=== PATIENT | female | born 1940 | race Caucasian/White ===

== ENCOUNTER 2016-07-23 09:30 | Inpatient (IN) | payer MEDICARE ==
--- NOTE | 2016-09-30 21:38 | HP ---
HISTORY AND PHYSICAL: DATE OF SURGERY/ADMISSION: 10/08/16 DATE OF OFFICE VISIT: 09/30/16 SURGEON: Elva Newman MD PROCEDURE: Right total hip arthroplasty. CHIEF COMPLAINT: Right hip pain. HISTORY OF PRESENT ILLNESS: Ms. Fontaine is a 76-year-old female with complaints of right hip pain. She has failed conservative management and has elected to proceed with the right total hip arthroplasty. The surgery is scheduled for 05/[address] Newman. PAST MEDICAL HISTORY: Acid reflux, hypertension, high cholesterol, aortic valve disease, and mitral valve disease. 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 CURRENT MEDICATIONS: 1. Gabapentin 100 mg twice a day. 2. Captopril 50 mg 3 times a day. 3. Lescol XL 80 mg once a day. 4. Aspirin 81 mg once a day. 5. Maalox as needed. 6. Omeprazole 20 mg once a day. 7. Symbicort 80/4.5 mcg/ACT 2 puffs twice a day as needed. 8. Furosemide 20 mg. 9. Ventolin HFA. 10. Dicyclomine 10 mg 3 times a day. 11. Tramadol 50 mg every 6 hours. 12. Amlodipine 5 mg once a day. 13. Extra Strength Tylenol as needed. ALLERGIES: To SULFA, BETADINE, ERYTHROMYCIN, REQUIP, PREMARIN, and ROZEREM. FAMILY HISTORY: Heart disease. SOCIAL HISTORY: She is a 76-year-old female. She lives with her . She does not smoke, use drugs, or alcohol. REVIEW OF SYSTEMS: A complete 14-point review of systems was reviewed with the patient and was positive for occasional palpitations. PHYSICAL EXAMINATION GENERAL: She is well developed, well nourished. She is in no acute distress. VITAL SIGNS: She stands 5 feet 9 inches tall and weighs 125 pounds. Her blood pressure 125/65, her heart rate is 72. HEENT: Normocephalic, atraumatic. NECK: Supple. No palpable lymph nodes. Trachea is midline. PULMONARY: Lungs are clear to auscultation bilaterally. CARDIO: Regular rate and rhythm. Strong S1, S2. ABDOMEN: Soft, nontender, nondistended. NEUROLOGICAL: She is alert and oriented x3. Cranial nerves II through XII are intact. MUSCULOSKELETAL: Right lower extremity: The skin is intact. She has limited internal and external rotation of the right hip. She walks with the antalgic- type gait favoring her right leg. Her lower extremity muscle group strengths are intact at 5/5. She has 2+ dorsalis pedis pulses and intact sensation. ASSESSMENT AND PLAN: Ms. Fontaine is a 76-year-old female with complaints of right hip pain secondary to advanced osteoarthritis. She has failed conservative management and has elected to proceed with a right total hip arthroplasty, which is scheduled for 10/08/[address] Newman discussed the risks and benefits of the surgery at today's visit and all of her questions were answered. Percocet, Colace, and Coumadin were sent to her pharmacy for postoperative pain control and DVT prophylaxis. She will see Dr. Newman back in 10 to 14 days after the surgery. KEELEY MIRANDA [id number]/[facility] #: [id number] MTDD
[2016-10-08] MEDS ORDERED: Buffered Lidocaine 1% SYRIN* 3 ML/SYR SYRINGE INTRADERM ONE (06:00)
[2016-10-08] MEDS ORDERED: ceFAZolin 2 GM PREMIX(*) 2 GM/50 ML BAG IVPB ONE (08:06)
[2016-10-08] MEDS ORDERED: Propofol* 10 MG/ML 20 ML BTL IV PUSH ONE (09:47)
[2016-10-08] MEDS ORDERED: Lidocaine 2% PF* 5 ML VIAL ONE (09:47)
[2016-10-08] MEDS ORDERED: Rocuronium* 10 MG/ML VIAL ONE (09:47)
[2016-10-08] MEDS ORDERED: Bupivacaine 0.5% SDV PF* 30 ML VIAL ONE (09:48)
[2016-10-08] MEDS ORDERED: fentaNYL* 50 MCG/ML 2 ML VIAL (100 MCG VIAL) ONE (10:49)
[2016-10-08] MEDS ORDERED: Phenylephrine IV* 40 MCG/ML 10 ML SYRINGE ONE (12:25)
--- NOTE | 2016-10-08 12:25 | RAD ---
Indication: RIGHT total hip replacement. Comparison: September 30, 2016 Technique: LEFT lateral decubitus crosstable AP view of the RIGHT hip and pelvis. Report: Acetabular component and test fit/reamer femur component in place. No periprosthetic fracture evident. Lateral subcutaneous emphysema. IMPRESSION: Intraoperative control film.
[2016-10-08] MEDS ORDERED: Dexamethasone IV* 4 MG/ML 1 ML (4 MG) ONE (12:26)
[2016-10-08] MEDS ORDERED: Glycopyrrolate IV* 0.2 MG/ML 1 ML VIAL ONE (12:46)
[2016-10-08] MEDS ORDERED: Neostigmine Methylsulfate* 2 MG/2 ML SYRINGE ONE (12:46)
[2016-10-08] MEDS ORDERED: Ondansetron INJ* 2 MG/ML VIAL IV PRN ×2 (12:48→13:07)
[2016-10-08] MEDS ORDERED: LACTULOSE* 30 ML UDC PO PRN (13:07)
[2016-10-08] MEDS ORDERED: Acetaminophen TAB* 325 MG PO PRN (13:07)
[2016-10-08] MEDS ORDERED: diPHENhydraMINE IV* 50 MG/ML 1 ml VIAL (BENADRYL) IV PRN (13:07)
[2016-10-08] MEDS ORDERED: Morphine INJ* 4 MG/ML 1 ML SYRINGE IV PRN (13:07)
[2016-10-08] MEDS ORDERED: Ondansetron TAB* 4 MG PO PRN (13:07)
[2016-10-08] MEDS ORDERED: Bisacodyl SUPP* 10 MG SUPP PR PRN (13:07)
[2016-10-08] MEDS ORDERED: diPHENhydraMINE PO* 25 MG PO PRN (13:07)
[2016-10-08] MEDS ORDERED: fentaNYL* 50 MCG/ML 5 ML VIAL (250 MCG VIAL) ONE (13:13)
[2016-10-08] MEDS: fentaNYL* 50 MCG/ML 2 ML VIAL (100 MCG VIAL) IV PRN ×5 (13:15→13:37)
[2016-10-08] MEDS ORDERED: Polyethylene Glycol 3350* 17 GM PACKET PO PRN (13:19)
[2016-10-08] MEDS ORDERED: Albuterol HFA INHALER* 8 gm MDI INH PRN (13:21)
[2016-10-08] MEDS ORDERED: HYDROmorphone* 1 MG/ML 1 ML SYR ONE (13:31)
[2016-10-08] MEDS ORDERED: Ketorolac INJ* 30 MG/ML 1 ML VIAL ONE (13:31)
[2016-10-08] MEDS ORDERED: CAPTOPRIL 50 MG PO SCH (14:00)
--- NOTE | 2016-10-08 14:13 | RAD ---
Indication: Post RIGHT total hip arthroplasty. Comparison: September 30, 2016 Technique: Low AP pelvis, AP RIGHT hip, and crosstable lateral RIGHT hip views. Report: Noncemented RIGHT total hip prosthesis in place with normal alignment. No periprosthetic fracture evident. Overlying soft tissue edema and subcutaneous emphysema. IMPRESSION: Unremarkable immediate postoperative appearance following RIGHT total hip arthroplasty.
[2016-10-08] MEDS: Gabapentin CAP(*) 100 MG PO SCH ×2 (15:07→20:24)
[2016-10-08] MEDS: Dicyclomine CAP* 10 MG PO SCH ×2 (15:12→20:23)
[2016-10-08] MEDS ORDERED: oxyCODONE/Acetamin 5/325 MG* TAB ONE (15:55)
[2016-10-08] MEDS: oxyCODONE/Acetamin 5/325 MG* TAB PO PRN (15:57)
[2016-10-08] MEDS ORDERED: Captopril TAB* 25 MG PO SCH (16:11)
[2016-10-08] MEDS ORDERED: Warfarin TAB(*) 6 MG PO ONE (17:00)
[2016-10-08] MEDS: Atorvastatin* 10 MG TAB PO SCH (17:31)
[2016-10-08] MEDS: ceFAZolin 1 GM in Dextrose (*) 1 GM/50 ML BAG IVPB SCH (20:21)
[2016-10-08] MEDS: oxyCODONE TAB* 5 MG TAB PO PRN (20:21)
[2016-10-08] MEDS: Omeprazole CAP* 20 MG PO SCH (20:23)
[2016-10-08] MEDS: Magnesium Hydroxide LIQ* 30 ML UDC PO SCH (20:24)
[2016-10-08] MEDS: Docusate CAP* 100 MG PO SCH (20:24)
[2016-10-08] MEDS: Mometasone/Formoter 200/5 MDI INH SCH (20:25)
--- NOTE | 2016-10-08 22:30 | CONS ---
[facility] MEDICINE CONSULTATION REPORT: DATE OF CONSULT: 10/08/16 ATTENDING PHYSICIAN: Dr. Elva Newman. CONSULTING PHYSICIAN: Dr. Srikanth Oseguera (dictation provided by Miranda Smith NP). REASON FOR CONSULT: Medical co-management, admitted for right total hip arthroplasty. HISTORY OF PRESENT ILLNESS: Ms. Fontaine is a 76-year-old female with a past medical history of GERD, hypertension, high cholesterol, and aortic and mitral valve regurgitation who presents today to the hospital with a plan for a right total knee arthroplasty. Please see the dictated H and P from Dr. Newman for complete details. In brief, the patient had ongoing right hip pain and failed conservative measures and opted for surgical intervention. Ms. Fontaine states she has been feeling well prior to surgery. She has no complaints. In the immediate 24 hours prior to surgery, she did have a bit of diarrhea which she attributes to being quite nervous about the procedure. She was seen preoperatively by Dr. Gusman. Dr. Gusman notes that the patient was doing well. She had no angina. No evidence of CHF. He felt that no cardiac testing was indicated prior to surgery and that she could proceed as planned. She denies any other complaints. PAST MEDICAL HISTORY: 1. GERD. 2. Hypertension. 3. Hyperlipidemia. 4. Aortic valve regurgitation. 5. Mitral valve regurgitation. 6. Sciatica. 7. Low back pain. 8. Lumbar radiculopathy. 9. Asthma. MEDICATIONS: 1. Gabapentin 100 mg b.i.d. 2. Captopril 50 mg t.i.d. 3. Lescol XL 80 mg once a day. 4. Aspirin 81 mg daily. 5. Maalox p.r.n. 6. Omeprazole 20 mg daily. 7. Symbicort 80/4.5 mcg 2 puffs twice a day. 8. Furosemide 20 mg p.o. daily. 9. Ventolin inhaler as needed. 10. Dicyclomine 10 mg 3 times a day. 11. Tramadol 50 mg q.6 hours as needed. 12. Amlodipine 5 mg daily. 13. Extra Strength Tylenol as needed. FAMILY HISTORY: Positive for heart disease. SOCIAL HISTORY: No report of alcohol, tobacco, or drug use. The patient lives with her , Germán, who is the healthcare proxy REVIEW OF SYSTEMS: A 14-point review of systems was completed with Ms. Fontaine and all those mentioned above were negative. PHYSICAL EXAM: Vital Signs: Temperature 98.0, pulse rate 69, respiratory rate 16, O2 saturation 100% on room air, blood pressure 131/64. General: Ms. Fontaine is sitting in the bed. She is in no acute distress. She is calm and cooperative with my examination. Neuro: She is alert and oriented x3. She moves all extremities equally. There is no facial asymmetry or focal weakness. Extraocular movements are intact. Heart: S1, S2. No murmur, rub, or gallop and regular. Lungs are clear to auscultation bilaterally with no accessory muscle use and good aeration. The abdomen is soft, nontender with bowel sounds positive x4. Extremities: No cyanosis or edema. Skin is intact. DIAGNOSTIC STUDIES/LAB DATA: On 09/30/16, WBC 8.7, hemoglobin 13.5, hematocrit 41, platelet count 344. Sodium 132, potassium 4.1, chloride 98, serum bicarbonate 27, BUN 11, creatinine 0.64, glucose 85. ASSESSMENT: Ms. Fontaine is a 76-year-old female with a past medical history of hypertension, high cholesterol, and mitral and aortic insufficiency who presents today to the hospital for planned right total hip arthroplasty. Our recommendations are as follows: 1. Right total hip replacement: Management will be per Orthopedics. The patient will have pain medications p.r.n. and bowel regimen. She will have physical and occupational therapy and we will monitor H and H. 2. Hypertension: Plan to hold captopril in the immediate postoperative period , but she will continue on her Lasix. 3. Asthma: Pt reports using her rescue inhaler only when needing to walk long distances or up a sharp incline. Plan to monitor and continue prn. Encourage deep breathing and incentive spirometry. 3. DVT prophylaxis with Lovenox and warfarin per Ortho. 4. Code status is full code. TIME SPENT: Approximately 60 minutes were spent on the consultation of this patient, more than half time spent with the patient at the bedside reviewing the events leading up to this hospitalization, performing the physical examination, and reviewing the plan [place] [id number]/[facility] #: [id number] [facility]
[2016-10-09] MEDS: oxyCODONE/Acetamin 5/325 MG* TAB PO PRN ×4 (00:10→15:36)
[2016-10-09] MEDS: ceFAZolin 1 GM in Dextrose (*) 1 GM/50 ML BAG IVPB SCH ×2 (03:53→11:46)
[2016-10-09] MEDS: oxyCODONE TAB* 5 MG TAB PO PRN ×2 (03:54→19:34)
[2016-10-09 06:57] LABS: Hematocrit 30 % (35-47); Hemoglobin 10.1 g/dl (12.0-16.0)
[2016-10-09 07:16] LABS: BUN/Creatinine Ratio 15.1 (8-20); Calcium 8.4 mg/dL (8.6-10.3); EGFR African American 144.2 (>60); EGFR Non-African American 112.2 (>60); Potassium 4.2 mmol/L (3.5-5.0)
[2016-10-09] MEDS: Dicyclomine CAP* 10 MG PO SCH ×3 (08:47→19:33)
[2016-10-09] MEDS: Mometasone/Formoter 200/5 MDI INH SCH ×2 (08:48→08:51)
[2016-10-09] MEDS: Magnesium Hydroxide LIQ* 30 ML UDC PO SCH ×2 (08:48→19:35)
[2016-10-09] MEDS: amLODIPine TAB* 5 MG PO SCH (08:48)
[2016-10-09] MEDS: Docusate CAP* 100 MG PO SCH ×2 (08:48→19:34)
[2016-10-09] MEDS: Gabapentin CAP(*) 100 MG PO SCH ×3 (08:48→19:35)
[2016-10-09] MEDS ORDERED: Furosemide TAB* 20 MG PO SCH (09:00)
[2016-10-09] MEDS: PTO:Budesonide/Formote 80/4.5(NF) MDI INH SCH ×2 (09:53→19:45)
--- NOTE | 2016-10-09 10:22 | PN ---
Progress Note - Progress Note SOAP: Subjective: []Patient seen OOB in chair. Daughters and present. She is doing well , pain well managed. Nursing holding Lasix and BP meds due to recent hypotension. Feels mild dizziness, no SOB or CP. Objective: [] Vital Signs Temp 97.7 F 10/09/16 07:12 Pulse 59 10/09/16 07:12 Resp 18 10/09/16 09:42 BP 104/55 10/09/16 07:12 Pulse Ox 100 10/09/16 08:00 Intake & Output 10/08/16 10/09/16 10/09/16 18:59 06:59 18:59 Intake Total 2595 1125 Output Total 2400 525 Balance 195 600 Weight 123 lb 3.2 oz Intake: IV Fluids 980 627 LR 980 627 IVPB 55 58 Kefzol 55 58 Oral 1560 440 Output: Ross 2400 525 Laboratory Results - last 24 hr 10/09/16 10/09/16 10/09/16 06:38 06:38 06:38 Hgb 10.1 L Hct 30 L INR (Anticoag Therapy) 1.10 Sodium 131 L Potassium 4.2 Chloride 101 Carbon Dioxide 27 Anion Gap 3 BUN 8 Creatinine 0.53 Est GFR ( Amer) 144.2 Est GFR (Non-Af Amer) 112.2 BUN/Creatinine Ratio 15.1 Glucose 94 Calcium 8.4 L Right hip dressing is dry and intact calf mildly tender, Garo's negative, no edema +DF/PF right ankle neurovascularly intact distally Assessment: []s/p Right total hip arthroplasty POD #1 Plan: []PT/OT WBAT RLE Coumadin with Lovenox bridge: 6 mg today Medicine following
--- NOTE | 2016-10-09 12:48 | PN ---
Subjective Date of Service: 10/09/16 Interval History: Patient seen and examined at bedside. Pt states that her pain is controlled. Denies fever, chills, lightheadedness or dizziness, shortness of breath, chest discomfort, N/V/D, numbness or tingling. Family History: Unchanged from Admission Social History: Unchanged from Admission Past Medical History: Unchanged from Admission Objective Active Medications: Acetaminophen (Tylenol Tab*) 650 mg PO Q4H PRN Reason: mild pain or fever Albuterol (Ventolin Hfa Inhaler*) 2 puff INH Q4H PRN Reason: SOB/WHEEZING Amlodipine Besylate (Norvasc Tab*) 5 mg PO QAM FLOYD Atorvastatin Calcium (Lipitor*) 10 mg PO QPM FLOYD Bisacodyl (Dulcolax Supp*) 10 mg SD DAILY PRN Reason: constipation Budesonide/Formoterol Fumarate (Symbicort 80/4.5 (Nf)) 2 aer INH BID FLOYD Dicyclomine HCl (Bentyl Cap*) 10 mg PO TID FLOYD Diphenhydramine HCl (Benadryl Iv*) 12.5 mg IV Q6H PRN Reason: PRURITIS Diphenhydramine HCl (Benadryl Po*) 25 mg PO Q6H PRN Reason: INSOMNIA Docusate Sodium (Colace Cap*) 100 mg PO BID FLOYD Enoxaparin Sodium (Lovenox(*)) 30 mg SUBCUT Q24H FLOYD Furosemide (Lasix Tab*) 10 mg PO EVERY OTHER DAY FLOYD Furosemide (Lasix Tab*) 20 mg PO DAILY FLOYD Gabapentin (Neurontin Cap(*)) 100 mg PO TID FLOYD Lactated Ringer's (Lactated Ringers 1000 Ml Bag*) 1,000 mls @ 100 mls/hr IV PER RATE FLOYD Lactulose (Lactulose*) 30 ml PO Q6H PRN Reason: constipation Magnesium Hydroxide (Milk Of Magnesia Liq*) 30 ml PO BID FLOYD Morphine Sulfate (Morphine Inj (Syringe)*) 4 mg IV Q2H PRN Reason: PAIN Omeprazole (Prilosec Cap*) 20 mg PO BEDTIME FLOYD Ondansetron HCl (Zofran Inj*) 4 mg IV Q6H PRN Reason: nausea Ondansetron HCl (Zofran Tab*) 4 mg PO Q6H PRN Reason: NAUSEA Oxycodone HCl (Roxycodone Tab*) 10 mg PO Q4H PRN Reason: breakthrough pain Oxycodone/Acetaminophen (Percocet 5/325 Tab*) 1 - 2 tab PO Q3H PRN Reason: PAIN - MODERATE Pharmacy Profile Note (Coumadin Daily Reminder*) 1 note FOLLOW UP 1700 FLOYD Polyethylene Glycol/Electrolytes (Miralax*) 17 gm PO DAILY PRN Reason: Constipation Warfarin Sodium (Coumadin Tab(*)) 6 mg PO ONCE@1700 ONE Stop: 10/09/16 17:01 Vital Signs 10/08/16 10/08/16 10/08/16 13:05 13:10 13:15 Temperature 97.0 F Pulse Rate 86 86 81 Respiratory 14 19 18 Rate Blood Pressure 150/85 142/95 137/99 (mmHg) O2 Sat by Pulse 100 100 100 Oximetry 10/08/16 10/08/16 10/08/16 13:18 13:20 13:30 Temperature Pulse Rate 79 75 Respiratory 14 17 18 Rate Blood Pressure 150/98 160/86 (mmHg) O2 Sat by Pulse 100 100 Oximetry 10/08/16 10/08/16 10/08/16 13:35 13:37 13:45 Temperature Pulse Rate 75 Respiratory 16 16 14 Rate Blood Pressure 142/83 (mmHg) O2 Sat by Pulse 100 Oximetry 10/08/16 10/08/16 10/08/16 14:00 14:30 14:53 Temperature 97.7 F Pulse Rate 75 70 71 Respiratory 12 18 17 Rate Blood Pressure 147/71 133/68 126/60 (mmHg) O2 Sat by Pulse 100 100 100 Oximetry 10/08/16 10/08/16 10/08/16 15:02 15:57 16:12 Temperature 99.0 F Pulse Rate 71 Respiratory 17 18 18 Rate Blood Pressure 126/60 (mmHg) O2 Sat by Pulse 100 Oximetry 10/08/16 10/08/16 10/08/16 16:13 16:22 17:06 Temperature 98.0 F Pulse Rate 69 Respiratory 16 Rate Blood Pressure 131/64 (mmHg) O2 Sat by Pulse 100 99 99 Oximetry 10/08/16 10/08/16 10/08/16 17:14 17:18 17:28 Temperature 97.8 F Pulse Rate 75 Respiratory 14 18 18 Rate Blood Pressure 127/63 (mmHg) O2 Sat by Pulse 100 Oximetry 10/08/16 10/08/16 10/08/16 19:16 20:21 20:23 Temperature 98.2 F Pulse Rate 76 Respiratory 16 16 16 Rate Blood Pressure 120/63 (mmHg) O2 Sat by Pulse 100 Oximetry 10/08/16 10/08/16 10/08/16 20:24 20:34 21:13 Temperature 98.3 F Pulse Rate 68 Respiratory 16 16 16 Rate Blood Pressure 112/55 (mmHg) O2 Sat by Pulse 98 Oximetry 10/09/16 10/09/16 10/09/16 00:03 00:10 02:10 Temperature 97.7 F Pulse Rate 59 Respiratory 16 16 16 Rate Blood Pressure 114/59 (mmHg) O2 Sat by Pulse 100 Oximetry 10/09/16 10/09/16 10/09/16 03:54 04:40 05:54 Temperature 97.6 F Pulse Rate 57 Respiratory 16 16 16 Rate Blood Pressure 125/62 (mmHg) O2 Sat by Pulse 100 Oximetry 10/09/16 10/09/16 10/09/16 07:12 07:42 08:00 Temperature 97.7 F Pulse Rate 59 Respiratory 16 18 18 Rate Blood Pressure 104/55 (mmHg) O2 Sat by Pulse 100 100 Oximetry 10/09/16 10/09/16 10/09/16 10:18 11:41 11:45 Temperature 97.3 F Pulse Rate 67 Respiratory 18 16 18 Rate Blood Pressure 102/52 (mmHg) O2 Sat by Pulse 91 Oximetry 10/09/16 11:54 Temperature Pulse Rate Respiratory Rate Blood Pressure (mmHg) O2 Sat by Pulse 98 Oximetry Oxygen Devices in Use Now: None Appearance: NAD, sitting up in bed Eyes: No Scleral Icterus, PERRLA Ears/Nose/Mouth/Throat: NL Teeth, Lips, Gums, Mucous Membranes Moist Neck: NL Appearance and Movements; NL JVP, Trachea Midline Respiratory: Symmetrical Chest Expansion and Respiratory Effort, Clear to Auscultation Cardiovascular: NL Sounds; No Murmurs; No JVD, RRR Abdominal: NL Sounds; No Tenderness; No Distention Extremities: No Edema Skin: No Rash or Ulcers, - - Dressing to right hip clean, dry and intact Neurological: Alert and Oriented x 3, NL Muscle Strength and Tone Lines/Tubes/Other Access: Clean, Dry and Intact Peripheral IV - site benign Nutrition: Taking PO's Result Diagrams: 10/09/16 06:38 10/09/16 06:38 Assess/Plan/Problems-Billing Assessment: Ms. Fontaine is a 76 yo female with PMH significant for HTN, HLD, and mitral and aortic insufficiency who presented to the [facility] for an elective right total hip arthroplasty. - Patient Problems (1) Status post total hip replacement, right Code(s): Z96.641 - PRESENCE OF RIGHT ARTIFICIAL HIP JOINT SNOMED Code(s): 506145657391 Comment: - POD #1 - Management per Ortho - Continue PT/OT - Trend HH (2) HTN (hypertension) Code(s): I10 - ESSENTIAL (PRIMARY) HYPERTENSION SNOMED Code(s): 22205459 Comment: - Controlled - Continue Amlodipine and Lasix - Continue to hold captopril for now (3) Asthma Code(s): J45.909 - UNSPECIFIED ASTHMA, UNCOMPLICATED SNOMED Code(s): 048820726 Comment: - Albuterol PRN - Encouraged deep breathing and IS (4) DVT prophylaxis Code(s): CGB0817 - SNOMED Code(s): 140129158 Comment: - Continue Lovenox to Warfarin bridge per Ortho (5) Full code status Code(s): Z78.9 - OTHER SPECIFIED HEALTH STATUS SNOMED Code(s): 904049601 Status and Disposition: Inpatient. Disposition per Orthopedics
[2016-10-09] MEDS ORDERED: Enoxaparin(*) 30 MG/0.3 ML SYR SUBCUT SCH (14:00)
[2016-10-09] MEDS ORDERED: Warfarin TAB(*) 6 MG PO ONE (17:00)
[2016-10-09] MEDS: Atorvastatin* 10 MG TAB PO SCH (17:43)
[2016-10-09] MEDS: Omeprazole CAP* 20 MG PO SCH (19:34)
--- NOTE | 2016-10-09 22:05 | OP ---
DATE OF OPERATION: 10/08/16 - ROOM #347 DATE OF : 40 SURGEON: Elva Newman MD GENERAL FARM HAND: KEELEY Rossi ANESTHESIOLOGIST: Dr. Vallejo. ANESTHESIA: General. PRE-OP DIAGNOSIS: Severe end-stage degenerative osteoarthritis of the right hip joint. POST-OP DIAGNOSIS: Severe end-stage degenerative osteoarthritis of the right hip joint. OPERATIVE PROCEDURE: Right total hip arthroplasty. HARDWARE USED: This is uncemented Uvaldo total hip arthroplasty hardware. For the cup, a Tritanium Cluster Hole Shell 52D, two 20-mm bone screws were used. For the liner, a Trident X3 0-degree polyethylene insert 36D. For the femur, an Accolade TMZF size 3 127-degree neck with a Biolox delta ceramic V40 femoral head 36 -2.5. COMPLICATIONS: None. ESTIMATED BLOOD LOSS: 400 cc. SPECIMEN: Femoral head and acetabular reaming, sent to pathology. BRIEF HISTORY/INDICATIONS: Ms. Fontaine is a 76-year-old female with a year of increasingly severe right hip pain. She failed conservative treatment with anti - inflammatories, pain medications, intraarticular hip injection, and physical therapy. Due to continued pain and decreased quality of life, she elected to have right total hip arthroplasty. Informed consent was obtained from the patient. She understood the risks of the surgery included, but were not limited to bleeding, infection, damage to nearby structures, continued pain, need for further surgery, intraoperative fracture, nerve palsy, hardware failure, loosening, dislocation, leg length discrepancy, stroke, heart attack, blood clot, and . She wished to proceed. INTRAOPERATIVE FINDINGS: Intraoperatively, the patient was noted to have severe end-stage arthritis. She had complete loss of cartilage in the femoral head and acetabulum. There were significant osteophyte formation around the femoral head and neck junction. DESCRIPTION OF PROCEDURE: Ms. Fontaine was identified in the preanesthesia unit. Her right lower extremity was marked as the correct operative side. Informed consent was signed and placed in the chart. The patient was taken to the operating room and placed under general anesthesia without difficulty. A Ross catheter was placed. The patient was placed in the left lateral decubitus position on the PEG board with all bony prominences well padded. Right lower extremity was prepped and draped in the usual sterile fashion. Preop time-out was made to correctly identify the patient's side and site. Appropriate perioperative antibiotics were given within 1 hour of incision. A 12 cm posterior hip incision was made with a 10 blade and carried down to the lateral fascial layer. Lateral fascial layer was incised in line with the skin incision. Charnley retractor was placed. Posterior aspect of the hip joint was easily visualized. The piriformis and conjoint tendons were identified and elevated off the posterolateral femur using electrocautery. These were tagged with two #5 Ethibonds. Next, a standard posterolateral capsular flap was made with electrocautery and also tagged with two #5 Ethibonds. The hip was carefully dislocated. Lesser troch to the center of the femoral head measured 50 mm. Oscillating saw was used to make the appropriate femoral neck cut. The femoral head was sent to pathology. The femur was carefully retracted anteriorly. After appropriate placement of retractors, the acetabulum was easily visualized. Long handled knife was used to carefully remove any remaining labrum from the acetabular rim. The acetabulum was sequentially reamed up to a size 51. A 51 trial had good fit. A 52 Tritanium cluster hole shell was chosen as the final acetabular insert. This was impacted into the acetabulum without difficulty. There was good stability. There was appropriate anteversion and abduction angle. Two 20-mm screws were placed in the superior posterior quadrant for extra stability. A Trident X3 0-degree liner 36D was chosen and impacted into the acetabular cup. Stability of the liner was checked and rechecked and noted to be stable. Attention was turned next to preparation of the proximal femur. Box cut osteotome and canal finder were used to enter the proximal femur. Femur was sequentially broached up to a size 3, which had good fit and anteversion. A 127 -degree neck trial was chosen as well as a 36 +0 head trial. Hip was reduced and taken through range of motion. Soft tissue tension was slightly increased. The hip was stable in all positions. The hip was carefully dislocated. All trials were carefully removed. Final implant chosen was TMZF Accolade size 3 with a 127-degree neck. This was impacted into the femoral canal without difficulty. There was good stability and appropriate anteversion. A 36 +0 trial head was chosen. This measured 54 mm. Therefore, a 36 -2.5 ceramic Biolox delta head was chosen as the final implant. This was impacted onto the femoral neck without difficulty. The hip was reduced and taken through a range of motion. The hip was stable in all positions with good soft tissue tension. The hip was copiously irrigated with sterile saline. Previously tagged capsule and tendons were reapproximated to the posterolateral femur through two trochanteric drill holes. The hip was copiously irrigated with sterile saline. The lateral fascial layer was reapproximated using interrupted #1 Vicryl. The rest of the incision was closed in a layered fashion using 0 and 2-0 Vicryl. Skin was closed using running 3-0 Monocryl with Dermabond. Sterile Adaptic, 4x4s, and paper tape were used to cover the incision. The patient's anesthesia was reversed without difficulty. She was taken to the PACU in stable condition. Intended weightbearing will be weightbearing as tolerated with posterior hip precautions. Intended DVT prophylaxis will be Coumadin with a Lovenox bridge. [id number]/[facility] #: [id number] NORMA
[2016-10-10] MEDS: oxyCODONE TAB* 5 MG TAB PO PRN ×5 (00:02→16:34)
[2016-10-10 06:30] LABS: Hematocrit 30 % (35-47)
[2016-10-10] MEDS: Docusate CAP* 100 MG PO SCH ×2 (08:03→20:26)
[2016-10-10] MEDS: Magnesium Hydroxide LIQ* 30 ML UDC PO SCH ×2 (08:03→20:27)
[2016-10-10] MEDS: amLODIPine TAB* 5 MG PO SCH (08:03)
[2016-10-10] MEDS: PTO:Budesonide/Formote 80/4.5(NF) MDI INH SCH ×2 (08:12→19:30)
[2016-10-10] MEDS: Gabapentin CAP(*) 100 MG PO SCH ×3 (08:12→20:26)
[2016-10-10] MEDS: Dicyclomine CAP* 10 MG PO SCH ×3 (08:13→20:25)
[2016-10-10] MEDS ORDERED: Furosemide TAB* 20 MG PO SCH (09:00)
--- NOTE | 2016-10-10 11:41 | PN ---
Progress Note - Progress Note SOAP: Subjective: Pt. is alert, moderate pain. Objective: RLE - dressing changed, inc c/d/i. distally nvi. Vital Signs: Temp Pulse Resp BP Pulse Ox 98.2 F 82 18 98/53 93 10/10/16 07:44 10/10/16 07:44 10/10/16 10:27 10/10/16 07:44 10/10/16 07:44 Laboratory Results - last 24 hr 10/10/16 10/10/16 06:03 06:07 Hgb 10.0 L Hct 30 L INR (Anticoag Therapy) 2.31 H Assessment: 76 yo F pod 2 s/p RTHA Plan: wbat rle with post hip precautions pt/ot d/c lovenox, hold coumadin tonight plan d/c to home with vns tomorrow
--- NOTE | 2016-10-10 17:13 | PN ---
Subjective Date of Service: 10/10/16 Interval History: Patient seen and examined at bedside. Pt states that her pain is controlled. Denies fever, chills, shortness of breath, chest discomfort, N/V/D. Family History: Unchanged from Admission Social History: Unchanged from Admission Past Medical History: Unchanged from Admission Objective Active Medications: Acetaminophen (Tylenol Tab*) 650 mg PO Q4H PRN Reason: mild pain or fever Albuterol (Ventolin Hfa Inhaler*) 2 puff INH Q4H PRN Reason: SOB/WHEEZING Amlodipine Besylate (Norvasc Tab*) 5 mg PO QAM FLOYD Atorvastatin Calcium (Lipitor*) 10 mg PO QPM FLOYD Bisacodyl (Dulcolax Supp*) 10 mg MO DAILY PRN Reason: constipation Budesonide/Formoterol Fumarate (Symbicort 80/4.5 (Nf)) 2 aer INH BID FLOYD Dicyclomine HCl (Bentyl Cap*) 10 mg PO TID FLOYD Diphenhydramine HCl (Benadryl Iv*) 12.5 mg IV Q6H PRN Reason: PRURITIS Diphenhydramine HCl (Benadryl Po*) 25 mg PO Q6H PRN Reason: INSOMNIA Docusate Sodium (Colace Cap*) 100 mg PO BID FLOYD Furosemide (Lasix Tab*) 10 mg PO MoWeFr@0900 FLOYD Furosemide (Lasix Tab*) 20 mg PO Gottlieb@0900 FLOYD Gabapentin (Neurontin Cap(*)) 100 mg PO TID FLOYD Lactated Ringer's (Lactated Ringers 1000 Ml Bag*) 1,000 mls @ 100 mls/hr IV PER RATE FLOYD Lactulose (Lactulose*) 30 ml PO Q6H PRN Reason: constipation Magnesium Hydroxide (Milk Of Magnesia Liq*) 30 ml PO BID FLOYD Morphine Sulfate (Morphine Inj (Syringe)*) 4 mg IV Q2H PRN Reason: PAIN Omeprazole (Prilosec Cap*) 20 mg PO BEDTIME FLOYD Ondansetron HCl (Zofran Inj*) 4 mg IV Q6H PRN Reason: nausea Ondansetron HCl (Zofran Tab*) 4 mg PO Q6H PRN Reason: NAUSEA Oxycodone HCl (Roxycodone Tab*) 10 mg PO Q4H PRN Reason: breakthrough pain Oxycodone/Acetaminophen (Percocet 5/325 Tab*) 1 - 2 tab PO Q3H PRN Reason: PAIN - MODERATE Pharmacy Profile Note (Coumadin Daily Reminder*) 1 note FOLLOW UP 1700 FLOYD Polyethylene Glycol/Electrolytes (Miralax*) 17 gm PO DAILY PRN Reason: Constipation Vital Signs 10/09/16 10/09/16 10/09/16 19:35 19:38 21:33 Temperature 98.0 F Pulse Rate 75 Respiratory 14 16 16 Rate Blood Pressure 106/55 (mmHg) O2 Sat by Pulse 100 Oximetry 10/09/16 10/09/16 10/09/16 21:34 21:35 23:31 Temperature 98.0 F Pulse Rate 85 Respiratory 16 16 16 Rate Blood Pressure 115/56 (mmHg) O2 Sat by Pulse 98 Oximetry 10/10/16 10/10/16 10/10/16 00:02 02:02 04:10 Temperature 98.1 F Pulse Rate 77 Respiratory 16 16 16 Rate Blood Pressure 102/49 (mmHg) O2 Sat by Pulse 97 Oximetry 10/10/16 10/10/16 10/10/16 04:15 06:15 07:44 Temperature 98.2 F Pulse Rate 82 Respiratory 16 16 18 Rate Blood Pressure 98/53 (mmHg) O2 Sat by Pulse 93 Oximetry 10/10/16 10/10/16 10/10/16 08:00 08:12 08:13 Temperature Pulse Rate Respiratory 18 18 18 Rate Blood Pressure (mmHg) O2 Sat by Pulse 93 Oximetry 10/10/16 10/10/16 10/10/16 10:27 12:27 12:39 Temperature 98.4 F Pulse Rate 81 Respiratory 18 18 18 Rate Blood Pressure 110/55 (mmHg) O2 Sat by Pulse 100 Oximetry 10/10/16 10/10/16 10/10/16 16:00 16:02 16:34 Temperature 97.9 F Pulse Rate 89 Respiratory 16 18 Rate Blood Pressure 115/55 (mmHg) O2 Sat by Pulse 100 99 Oximetry Oxygen Devices in Use Now: None Appearance: NAD, sitting up in bed Eyes: No Scleral Icterus Ears/Nose/Mouth/Throat: Mucous Membranes Moist Respiratory: Symmetrical Chest Expansion and Respiratory Effort, Clear to Auscultation Cardiovascular: NL Sounds; No Murmurs; No JVD, RRR Abdominal: NL Sounds; No Tenderness; No Distention Skin: - - Dressing to right hip Neurological: Alert and Oriented x 3, NL Muscle Strength and Tone Lines/Tubes/Other Access: Clean, Dry and Intact Peripheral IV - site benign Nutrition: Taking PO's Result Diagrams: 10/10/16 06:03 10/09/16 06:38 Assess/Plan/Problems-Billing Assessment: Ms. Fontaine is a 76 yo female with PMH significant for HTN, HLD, and mitral and aortic insufficiency who presented to the the hospital for an elective right total hip arthroplasty. - Patient Problems (1) Status post total hip replacement, right Code(s): Z96.641 - PRESENCE OF RIGHT ARTIFICIAL HIP JOINT SNOMED Code(s): 193075191982 Comment: - POD #2 - Management per Ortho - Continue PT/OT - Trend HH (2) HTN (hypertension) Code(s): I10 - ESSENTIAL (PRIMARY) HYPERTENSION SNOMED Code(s): 80776159 Comment: - Controlled - Continue Amlodipine and Lasix - Continue to hold captopril for now (3) Asthma Code(s): J45.909 - UNSPECIFIED ASTHMA, UNCOMPLICATED SNOMED Code(s): 140059340 Comment: - Albuterol PRN - Encouraged deep breathing and IS (4) DVT prophylaxis Code(s): LZL8446 - SNOMED Code(s): 105799239 Comment: - Continue Lovenox to Warfarin bridge per Ortho (5) Full code status Code(s): Z78.9 - OTHER SPECIFIED HEALTH STATUS SNOMED Code(s): 416403956 Status and Disposition: Inpatient. Disposition per Orthopedics
[2016-10-10] MEDS: Atorvastatin* 10 MG TAB PO SCH (17:40)
[2016-10-10] MEDS: Omeprazole CAP* 20 MG PO SCH (20:27)
[2016-10-10] MEDS: oxyCODONE/Acetamin 5/325 MG* TAB PO PRN (23:31)
[2016-10-11] MEDS: oxyCODONE/Acetamin 5/325 MG* TAB PO PRN ×2 (04:28→11:23)
[2016-10-11] MEDS: oxyCODONE TAB* 5 MG TAB PO PRN (06:32)
[2016-10-11 08:28] LABS: Hematocrit 33 % (35-47); Hemoglobin 11.1 g/dl (12.0-16.0)
[2016-10-11 08:35] VITALS: BP 107/55
[2016-10-11] MEDS: Magnesium Hydroxide LIQ* 30 ML UDC PO SCH (08:39)
[2016-10-11] MEDS: Gabapentin CAP(*) 100 MG PO SCH (08:40)
[2016-10-11] MEDS: Docusate CAP* 100 MG PO SCH (08:41)
[2016-10-11] MEDS: Dicyclomine CAP* 10 MG PO SCH (08:41)
[2016-10-11] MEDS: PTO:Budesonide/Formote 80/4.5(NF) MDI INH SCH (08:42)
[2016-10-11] MEDS ORDERED: Furosemide TAB* 20 MG PO SCH (09:00)
[2016-10-11] MEDS: amLODIPine TAB* 5 MG PO SCH (09:50)
--- NOTE | 2016-10-11 11:07 | PN ---
Progress Note - Progress Note SOAP: Subjective: [76 y/o female s/p R MYAH 10/[address] Newman. Patient feeling well, working well with PT, no complaints, pain controlled. Eager for D/C, with daugther and . VSS ] Objective: [GEneral- well appearing, sitting comfortably, NAD MSK- + DF/PF, neg homans, PT 2+ b/l, sensation intact grossly LEs, incision c/d/ i, redressed, minimal tenderness to palpation, no erythema. Vital Signs Temp 97.5 F 10/11/16 08:25 Pulse 69 10/11/16 08:25 Resp 18 10/11/16 10:40 BP 107/55 10/11/16 08:25 Pulse Ox 100 10/11/16 08:25 Intake & Output 10/10/16 10/11/16 10/11/16 18:59 06:59 18:59 Intake Total 610 1400 200 Output Total 1800 1999 675 Balance -1190 -600 -475 Intake: Oral 610 1400 200 Output: Urine 1300 2000 675 Liquid Stool 500 Other: Estimated Void Medium # Voids 1 Assessment: [76 y/o female s/p R MYAH 10/[address] Newman.] Plan: - Follow up with Dr. Newman within 10 days for wound check - INR theraputic, hold coumadin tonight - Continue PT/ OT Active Medications Generic Name Dose Route Start Last Admin Trade Name Freq PRN Reason Stop Dose Admin Acetaminophen 650 mg 10/08/16 13:07 Tylenol Tab* PO Q4H PRN mild pain or fever Albuterol 2 puff 10/08/16 13:21 Ventolin Hfa Inhaler* INH Q4H PRN SOB/WHEEZING Amlodipine Besylate 5 mg 10/09/16 09:00 10/11/16 09:50 Norvasc Tab* PO Not Given QAM FLOYD Atorvastatin Calcium 10 mg 10/08/16 18:00 10/10/16 17:40 Lipitor* PO 10 mg QPM FLOYD Administration Bisacodyl 10 mg 10/08/16 13:07 Dulcolax Supp* NM DAILY PRN constipation Budesonide/Formoterol Fumarate 2 aer 10/09/16 10:00 10/11/16 08:42 Symbicort 80/4.5 (Nf) INH 2 puff BID FLOYD Administration Dicyclomine HCl 10 mg 10/08/16 14:00 10/11/16 08:41 Bentyl Cap* PO 10 mg TID FLOYD Administration Diphenhydramine HCl 12.5 mg 10/08/16 13:07 Benadryl Iv* IV Q6H PRN PRURITIS Diphenhydramine HCl 25 mg 10/08/16 13:07 Benadryl Po* PO Q6H PRN INSOMNIA Docusate Sodium 100 mg 10/08/16 21:00 10/11/16 08:41 Colace Cap* PO 100 mg BID FLOYD Administration Furosemide 10 mg 10/11/16 09:00 10/11/16 09:50 Lasix Tab* PO Not Given MoWeFr@0900 FLOYD Furosemide 20 mg 10/13/16 09:00 Lasix Tab* PO Gottlieb@0900 FLOYD Gabapentin 100 mg 10/08/16 14:00 10/11/16 08:40 Neurontin Cap(*) PO 100 mg TID FLOYD Administration Lactated Ringer's 1,000 mls @ 100 mls/hr 10/08/16 14:00 10/09/16 01:10 Lactated Ringers 1000 Ml Bag* IV 100 mls/hr PER RATE FLOYD Administration Lactulose 30 ml 10/08/16 13:07 Lactulose* PO Q6H PRN constipation Magnesium Hydroxide 30 ml 10/08/16 21:00 10/11/16 08:39 Milk Of Magnesia Liq* PO Not Given BID FLOYD Morphine Sulfate 4 mg 10/08/16 13:07 10/09/16 13:45 Morphine Inj (Syringe)* IV 4 mg Q2H PRN Administration PAIN Omeprazole 20 mg 10/08/16 21:00 10/10/16 20:27 Prilosec Cap* PO 20 mg BEDTIME FLOYD Administration Ondansetron HCl 4 mg 10/08/16 13:07 10/09/16 13:45 Zofran Inj* IV 4 mg Q6H PRN Administration nausea Ondansetron HCl 4 mg 10/08/16 13:07 Zofran Tab* PO Q6H PRN NAUSEA Oxycodone HCl 10 mg 10/08/16 13:07 10/11/16 06:32 Roxycodone Tab* PO 10 mg Q4H PRN Administration breakthrough pain Oxycodone/Acetaminophen 1 - 2 tab 10/08/16 13:07 10/11/16 04:28 Percocet 5/325 Tab* PO 2 tab Q3H PRN Administration PAIN - MODERATE Pharmacy Profile Note 1 note 10/08/16 17:00 10/10/16 16:08 Coumadin Daily Reminder* FOLLOW UP 1 note 1700 FLOYD Administration Polyethylene Glycol/Electrolytes 17 gm 10/08/16 13:19 Miralax* PO DAILY PRN Constipation ]
[2016-10-13] MEDS ORDERED: Furosemide TAB* 20 MG PO SCH (09:00)
== END 2016-10-11 12:20 | disposition home health service (06) | DRG 470 ==
LOC: AA 10-08 07:41 → SSU 10-08 15:15
PROVIDERS: ADMIT Orthopaedic Surgery Adult Reconstructive Orthopaedic Surgery; ATTEND Orthopaedic Surgery Adult Reconstructive Orthopaedic Surgery
PROC: 0SR904A Replacement of Right Hip Joint with Ceramic on Polyethylene Synthetic Substitute, Uncemented, Open Approach (ICD-10-PCS; principal; 2016-10-08 10:15)
DX: M16.11 Unilateral primary osteoarthritis, right hip (principal); I10 Essential (primary) hypertension; K21.9 Gastro-esophageal reflux disease without esophagitis; E78.00 Pure hypercholesterolemia, unspecified; I08.0 Rheumatic disorders of both mitral and aortic valves; Z88.2 Allergy status to sulfonamides; Z88.1 Allergy status to other antibiotic agents; Z88.8 Allergy status to other drugs, medicaments and biological substances; Z82.49 Family history of ischemic heart disease and other diseases of the circulatory system; R42 Dizziness and giddiness; J45.909 Unspecified asthma, uncomplicated; M54.30 Sciatica, unspecified side; M25.751 Osteophyte, right hip
CPT/HCPCS: 36415; 72170; 80048; 85014; 85018; 85610; 88304; 88311; 94760; A9270-GY; C1713; C1776; J0690; J1100; J1170; J1650; J1885; J2270; J2405; J2704; J3010

== ENCOUNTER 2017-01-01 18:10 | Emergency (ER) | payer MEDICARE ==
[2017-01-01] MEDS ORDERED: NS 0.9% 1000 ML* 1,000 ML IV ONE (20:05)
[2017-01-01] MEDS ORDERED: methylPREDNISolone 125 MG* 2 ML VIAL IV ONE (20:05)
[2017-01-01] MEDS ORDERED: Ketorolac INJ* 30 MG/ML 1 ML VIAL IV ONE (20:05)
[2017-01-01] MEDS ORDERED: diPHENhydraMINE IV* 50 MG/ML 1 ml VIAL (BENADRYL) IV ONE (20:05)
[2017-01-01] MEDS ORDERED: Metoclopramide IV* 5 MG/ML 2 ML VIAL IV ONE (20:05)
[2017-01-01 22:13] VITALS: BP 136/77
--- NOTE | 2017-01-03 15:07 | ED ---
Jodie Villatoro SooYoung, scribed for Jaxon Ramirez MD on 01/01/17 at 1956 . Headache - HPI Summary HPI Summary: A 76 y/o F presents to ED referred by Dr. Motley with constant R-sided KIRBY onset two days ago, radiating down to jaw. Pain described as throbbing. Associated sx : teeth pain, neck pain. Denies visual changes, weakness, numbness, photophobia. Aggravating factors: certain odors. Takes Tramadol with Tylenol, Percocet for pain. Pt's is currently recovering from a stroke. PMHx: migraines. She states having the flu a few weeks ago. SHx: hip replacement. Dr. Motley suspects temporal arteritis. - History Of Current Complaint Chief Complaint: EDGeneral Stated Complaint: HIGH BLOOD COUNT- IV TREATMENT Time Seen by Provider: 01/01/17 19:45 Hx Obtained From: Patient, Family/Time Clock Mechanic - friend present Onset/Duration: Started days ago - two days ago, Still Present Timing: Constant Radiates to: jaw Associated Signs And Symptoms: Neck Pain, Other (Noted In Comments) - pos: dental pain - Allergies/Home Medications Allergies/Adverse Reactions: Allergies Allergy/AdvReac Type Severity Reaction Status Date / Time Conjugated Estrogens Allergy Intermediate Rash Verified 12/16/16 09:12 [From Premarin] Erythromycin Allergy Intermediate Hives Verified 12/16/16 09:12 Povidone Iodine Allergy Intermediate Hives Verified 12/16/16 09:12 [From Betadine] Ramelteon [From Rozerem] Allergy Mild Itching Verified 12/16/16 09:12 Ropinirole [From Requip] Allergy Mild Rash Verified 12/16/16 09:12 Sulfa Drugs Allergy Mild Hives Verified 12/16/16 09:12 PMH/Surg Hx/FS Hx/Imm Hx Previously Healthy: No Endocrine/Hematology History: Denies: Hx Diabetes Cardiovascular History: Reports: Hx Coronary Artery Disease - RIGHT CAROTID ARTERY WITH 30 % BLOCKAGE, Hx Hypercholesterolemia, Hx Hypertension, Hx Rheumatic Fever - A TEENAGER, Hx Valvular Heart Disease - LEAKING VALVES X 2 , Other Cardiovascular Problems/Disorders - Tachycardia; Aortic Valve Disorder; Mitral Valve Disorder Denies: Hx Angina, Hx Pacemaker/ICD Respiratory History: Reports: Hx Asthma - INHALERS, Other Respiratory Problems/ Disorders - SOB GOING UP STAIRS AND HILLS GI History: Reports: Hx Gastroesophageal Reflux Disease - CONTROL WITH MEDS, Hx Hiatal Hernia - CORRECTED BY DIMAS DELVALLE X 2004, Hx Irritable Bowel - CONSTIPATION, Hx Ulcer - CAUSED BY POSS USE OF NSAIDS History: Reports: Other Problems/Disorders - HX OF LARGE CYSTOCELE CORRECTED WITH A SLING SEES DR CORDERO Denies: Hx Renal Disease Musculoskeletal History: Reports: Hx Arthritis - GENERALIZED, Hx Back Problems, Other Musculoskeletal History - LUMBAR SPINAL STENOSIS; THORACIC and LS NEURITIS Sensory History: Reports: Hx Cataracts - BILAT, Hx Contacts or Glasses Denies: Hx Hearing Aid Opthamlomology History: Reports: Hx Cataracts - BILAT, Hx Contacts or Glasses Neurological History: Reports: Hx Headaches, Hx Migraine - none recently, Hx Nerve Disease - r/t right hip pain, Other Neuro Impairments/Disorders - PAIN CLINIC INJECTIONS Psychiatric History: Denies: Hx Anxiety, Hx Attention Deficit Hyperactivity Disorder, Hx Eating Disorder, Hx Depression, Hx Panic Disorder, Hx Post Traumatic Stress Disorder, Hx Inpatient Treatment, Hx Community Mental Health Tx, Hx Schizophrenia, Hx Bipolar Disorder, Hx Suicide Attempt, Hx of Violent Episodes Against Others, Hx Substance Abuse, Other Psychiatric Issues/Disorders - Cancer History Hx Chemotherapy: No Hx Radiation Therapy: No - Surgical History Surgery Procedure, Year, and Place: 1973 HYSTERECTOMY- [facility]. BLADDER SLING 2012 - [facility] [place]. COLECTOMY WITH BOWEL RESECTION 1978-[facility]. T&A 1960- [facility]. LEFT CATARACT 2002/ [facility] - [facility] [place] RIGHT CATARACT 2014 [facility] [place] APPENDECTOMY 12 YRS OLD- [place], [place];. LUMBAR SPINE SURGERY 11/09/2013 BY [facility] LEFT FOOT BUNIONECTOMY, SHORTENING OF SECOND TOE OF LEFT FOOT, [facility] Hx Anesthesia Reactions: No Infectious Disease History: No Infectious Disease History: Reports: Hx Shingles - X 3 2013 LAST EPISODE Denies: Hx Clostridium Difficile, Hx Hepatitis, Hx Human Immunodeficiency Virus (HIV), Hx of Known/Suspected MRSA, Hx Tuberculosis, Hx Known/Suspected VRE , Hx Known/Suspected VRSA, History Other Infectious Disease, Traveled Outside the in Last 30 Days - Family History Known Family History: Positive: Other - Breast CA - sister - Social History Occupation: Unemployed - HOMEMAKER Lives: With Family Alcohol Use: None Hx Substance Use: No Substance Use Type: Reports: None Hx Tobacco Use: No Smoking Status (MU): Never Smoked Tobacco Have You Smoked in the Last Year: No Review of Systems Negative: Fever Positive: Other - neg: vision changes. Negative: Photophobia Positive: Dental Pain - and jaw pain Positive: Other - pos: neck pain Positive: Headache. Negative: Weakness, Numbness All Other Systems Reviewed And Are Negative: Yes Physical Exam Triage Information Reviewed: Yes Vital Signs On Initial Exam: Initial Vitals Temp Pulse Resp BP Pulse Ox 98.2 F 86 15 152/98 98 01/01/17 18:15 01/01/17 18:15 01/01/17 18:15 01/01/17 18:15 01/01/17 18:15 Vital Signs Reviewed: Yes Appearance: Positive: Well-Appearing, No Pain Distress Skin: Positive: Warm, Skin Color Reflects Adequate Perfusion, Dry Head/Face: Negative: Temporal Artery Tenderness Eyes: Positive: Normal ENT: Positive: Normal ENT inspection Neck: Positive: Supple, Nontender Respiratory/Lung Sounds: Positive: Clear to Auscultation, Breath Sounds Present Cardiovascular: Positive: RRR Abdomen Description: Positive: Nontender, Soft Musculoskeletal: Positive: Normal Neurological: Positive: Normal Psychiatric: Positive: Normal, Affect/Mood Appropriate - Stacy Coma Scale Coma Scale Total: 15 Diagnostics - Vital Signs Vital Signs Temp Pulse Resp BP Pulse Ox 01/01/17 18:15 98.2 F 86 15 152/98 98 - Laboratory Lab Statement: Any lab studies that have been ordered have been reviewed, and results considered in the medical decision making process. Re-Evaluation - Re-Evaluation 1 Re-Evaluation Time: 21:40 Change: Improved Comment: Pt states feeling aiden, KIRBY still present, but better. Headache Course/Dx - Course Course Of Treatment: Ms. Fontaine has some right sided KIRBY and her ESR was reported elevated in Dr. Motley's office. The concern was for temporal arteritis. She was given a first dose of steroids IV and these will be continued PO as an outpatient as she has no visual C/O at this time. She got a lot of relief from her KIRBY with a migraine cocktail. - Diagnoses Provider Diagnoses: Headache Discharge - Discharge Plan Condition: Stable Disposition: HOME Prescriptions: predniSONE TAB* [Deltasone TAB*] 60 mg PO DAILY #42 tab Patient Education Materials: Prednisone (By mouth), General Headache (ED) Referrals: Ag Motley MD [Primary Care Provider] - 3 Days (Follow up with Dr. Motley in the next 2-3 days.) Additional Instructions: Follow up with Dr. Motley in the next 2-3 days. Please return to the ED if you experience new or worsening symptoms. The documentation as recorded by the Jodie almonte SooYoung accurately reflects the service I personally performed and the decisions made by me, Jaxon Ramirez MD.
== END 2017-01-01 22:13 | disposition home or self-care (01) ==
LOC: ED 18:10
DX: R51 Headache (principal); M54.2 Cervicalgia; K08.89 Other specified disorders of teeth and supporting structures
CPT/HCPCS: 96374; 96375; 99282; J1200; J1885; J2930

== ENCOUNTER 2018-05-13 21:05 | Emergency (ER) | payer MEDICARE ==
--- NOTE | 2018-05-14 00:09 | ED ---
Lower Extremity - HPI Summary HPI Summary: Patient complains of fall this morning with subsequent bilateral ankle pain and swelling, bilateral knee pain and swelling. Patient has ambulated since fall, denies head injury, hip injury, bilateral upper extremity injury, abdominal pain , chest wall pain, fever, cough, sore throat, CP, SOB, N/V/D, abdominal pain, change in urine, change in BM. Medical history is HTN, asthma, right hip placement 2017. - History of Current Complaint Chief Complaint: EDExtremityLower Stated Complaint: RT ANKLE PAIN/ LT ANKLE PAIN Time Seen by Provider: 05/13/18 21:36 Hx Obtained From: Patient Mechanism Of Injury: Fall From A Standing Position Onset of Pain: Immediate, Hours Onset/Duration: Hours Severity Initially: Moderate Severity Currently: Moderate Pain Intensity: 6 Pain Scale Used: 0-10 Numeric Timing: Constant Location: Is Discrete @ Character Of Pain: Aching, Throbbing Associated Signs And Symptoms: Positive: Swelling, Bruising, Knee Pain Aggravating Factor(s): Standing, Ambulation, Weight Bearing Alleviating Factor(s): Rest, Elevation, Ice Able to Bear Weight: Yes - Allergies/Home Medications Allergies/Adverse Reactions: Allergies Allergy/AdvReac Type Severity Reaction Status Date / Time erythromycin base Allergy Hives Verified 12/10/17 10:00 estrogens, conjugated Allergy Rash Verified 12/10/17 10:00 [From Premarin] povidone-iodine Allergy Hives Verified 12/10/17 10:00 [From Betadine] ramelteon [From Rozerem] Allergy Itching Verified 12/10/17 10:00 ropinirole [From Requip] Allergy Rash Verified 12/10/17 10:00 soap [From Betadine] Allergy Hives Verified 12/10/17 10:00 Sulfa (Sulfonamide Allergy Hives Verified 12/10/17 10:00 Antibiotics) PMH/Surg Hx/FS Hx/Imm Hx Endocrine/Hematology History: Denies: Hx Diabetes Cardiovascular History: Reports: Hx Coronary Artery Disease - RIGHT CAROTID ARTERY WITH 30 % BLOCKAGE, Hx Hypercholesterolemia, Hx Hypertension, Hx Rheumatic Fever - A TEENAGER, Hx Valvular Heart Disease - LEAKING VALVES X 2 , Other Cardiovascular Problems/Disorders - Tachycardia; Aortic Valve Disorder; Mitral Valve Disorder Denies: Hx Angina, Hx Pacemaker/ICD Respiratory History: Reports: Hx Asthma - INHALERS, Other Respiratory Problems/ Disorders - SOB GOING UP STAIRS AND HILLS GI History: Reports: Hx Gastroesophageal Reflux Disease - CONTROL WITH MEDS, Hx Hiatal Hernia - CORRECTED BY DIMAS DELVALLE X 2004, Hx Irritable Bowel - CONSTIPATION, Hx Ulcer - CAUSED BY POSS USE OF NSAIDS History: Reports: Other Problems/Disorders - HX OF LARGE CYSTOCELE CORRECTED WITH A SLING SEES DR CORDERO Denies: Hx Renal Disease Musculoskeletal History: Reports: Hx Arthritis - GENERALIZED, Hx Back Problems, Other Musculoskeletal History - LUMBAR SPINAL STENOSIS; THORACIC and LS NEURITIS Denies: Hx Osteoporosis Sensory History: Reports: Hx Cataracts - BILAT, Hx Contacts or Glasses Denies: Hx Hearing Aid Opthamlomology History: Reports: Hx Cataracts - BILAT, Hx Contacts or Glasses Neurological History: Reports: Hx Headaches, Hx Migraine - none recently, Hx Nerve Disease - r/t right hip pain, Other Neuro Impairments/Disorders - PAIN CLINIC INJECTIONS Psychiatric History: Denies: Hx Anxiety, Hx Attention Deficit Hyperactivity Disorder, Hx Eating Disorder, Hx Depression, Hx Panic Disorder, Hx Post Traumatic Stress Disorder, Hx Inpatient Treatment, Hx Community Mental Health Tx, Hx Schizophrenia, Hx Bipolar Disorder, Hx Suicide Attempt, Hx of Violent Episodes Against Others, Hx Substance Abuse, Other Psychiatric Issues/Disorders - Cancer History Hx Chemotherapy: No Hx Radiation Therapy: No - Surgical History Surgery Procedure, Year, and Place: 1973 HYSTERECTOMY- [facility]. [place] [facility] [place]OWEL [place]ECTION 1978[place]. T&A 1960- [facility]. LEFT [place] [facility] [place] [facility] [place] 12 YRS OLD[place], [place];. LUMBAR SPINE SURGERY 11/09/2013 BY [facility] LEFT FOOT BUNIONECTOMY, SHORTENING OF SECOND TOE OF LEFT FOOT, [facility] Hx Anesthesia Reactions: No Infectious Disease History: No Infectious Disease History: Reports: Hx Shingles - X 3 2013 LAST EPISODE Denies: Hx Clostridium Difficile, Hx Hepatitis, Hx Human Immunodeficiency Virus (HIV), Hx of Known/Suspected MRSA, Hx Tuberculosis, Hx Known/Suspected VRE , Hx Known/Suspected VRSA, History Other Infectious Disease, Traveled Outside the in Last 30 Days - Family History Known Family History: Negative: Diabetes - Social History Alcohol Use: None Substance Use Type: Reports: None Smoking Status (MU): Never Smoked Tobacco Have You Smoked in the Last Year: No Review of Systems Constitutional: Negative Eyes: Negative ENT: Negative Cardiovascular: Negative Respiratory: Negative Gastrointestinal: Negative Genitourinary: Negative Musculoskeletal: Other Positive: Bruising Neurological: Negative Psychological: Normal All Other Systems Reviewed And Are Negative: Yes Physical Exam - Summary Physical Exam Summary: Positive ecchymosis and swelling to right knee, right ankle. Mild swelling to left ankle. PMS intact distally in both lower extremities. Full range of motion of right knee and right ankle with pain, left knee and left ankle with minimal pain. No pain with palpation of hips. Patient able to actively flex and extend bilateral hips. Vital Signs On Initial Exam: Initial Vitals Temp Pulse Resp BP Pulse Ox 98 F 77 20 136/70 96 05/13/18 21:10 05/13/18 21:10 05/13/18 21:10 05/13/18 21:10 05/13/18 21:10 Diagnostics - Vital Signs Vital Signs Temp Pulse Resp BP Pulse Ox 05/13/18 21:10 98 F 77 20 136/70 96 - Laboratory Lab Statement: Any lab studies that have been ordered have been reviewed, and results considered in the medical decision making process. Lower Extremity Course/Dx - Course Course Of Treatment: Patient complains of fall this morning with subsequent bilateral ankle pain and swelling, bilateral knee pain and swelling. Patient has ambulated since fall, denies head injury, hip injury, bilateral upper extremity injury, abdominal pain, chest wall pain, fever, cough, sore throat, CP , SOB, N/V/D, abdominal pain, change in urine, change in BM. Medical history is HTN, asthma, right hip placement 2017. Physical exam: Positive ecchymosis and swelling to right knee, right ankle. Mild swelling to left ankle. PMS intact distally in both lower extremities. Full range of motion of right knee and right ankle with pain, left knee and left ankle with minimal pain. No pain with palpation of hips. Patient able to actively flex and extend bilateral hips. X-rays of bilateral hips and bilateral ankles negative for fracture. Ice , rest, elevation, Tylenol. Orthostatic symptoms do not improve. - Diagnoses Provider Diagnoses: Fall, Knee pain, bilateral, Bilateral ankle pain Discharge - Sign-Out/Discharge Documenting (check all that apply): Patient Departure - Discharge Plan Condition: Stable Disposition: HOME Patient Education Materials: Swollen Knee Joint (ED), Knee Pain (ED), Swollen Joint (ED) Referrals: Ag Motley MD [Primary Care Provider] - Jameson Dorsey MD [Medical Doctor] - Additional Instructions: Ice, tylenol and rest for pain. Follow-up with orthopedics Dr. Dorsey if pain does not resolve in a couple days. Return to the ED for any new or worsening symptoms - Billing Disposition and Condition Condition: STABLE Disposition: Home
[2018-05-14] MEDS ORDERED: Acetaminophen TAB* 325 MG PO ONE ×2 (00:11→00:22)
[2018-05-14 00:59] VITALS: BP 133/67
== END 2018-05-14 00:47 | disposition home or self-care (01) ==
LOC: ED 21:05
DX: M25.562 Pain in left knee (principal); M25.561 Pain in right knee; M25.572 Pain in left ankle and joints of left foot; M25.571 Pain in right ankle and joints of right foot; I70.203 Unspecified atherosclerosis of native arteries of extremities, bilateral legs; J45.909 Unspecified asthma, uncomplicated; K21.9 Gastro-esophageal reflux disease without esophagitis; Z96.641 Presence of right artificial hip joint; Z88.1 Allergy status to other antibiotic agents; Z88.2 Allergy status to sulfonamides; Z88.8 Allergy status to other drugs, medicaments and biological substances
CPT/HCPCS: 99282; A9270-GY